=== PATIENT | female | born 1975 | race Caucasian/White ===

== ENCOUNTER 2019-04-07 14:19 | Emergency (ER) | payer OTHER ==
[~2019-04-07] VITALS: Ht 152 cm; Wt 126.0 kg
[2019-04-07] MEDS ORDERED: LACTATED RINGERS 1,000 ML IV STA (14:41)
[2019-04-07] MEDS ORDERED: KETOROLAC 30 MG/ML VIAL IVP STA (14:41)
[2019-04-07] MEDS ORDERED: ONDANSETRON 4 MG/2 ML (SDV) Z0FRAN IVP ONE (14:45)
[2019-04-07 14:50] LABS: BASOPHILS % (AUTO) 0 % (0-10); EOSINOPHILS # (AUTO) 0.1 10^3/uL (0.0-0.3); EOSINOPHILS % (AUTO) 1 % (0-10); HEMATOCRIT 42 % (35-52); LYMPHOCYTES # (AUTO) 0.7 X 10^3 (1.0-4.0); LYMPHOCYTES % (AUTO) 5 % (12-44); MEAN CORPUSCULAR HEMOGLOBIN 28 PG (25-34); MEAN CORPUSCULAR HGB CONC 33 G/DL (32-36); MEAN CORPUSCULAR VOLUME 86 FL (80-99); MEAN PLATELET VOLUME 10.9 FL (7.4-10.4); MONOCYTES # (AUTO) 0.4 X 10^3 (0.0-1.0); MONOCYTES % (AUTO) 3 % (0-12); NEUTROPHILS # (AUTO) 12.2 X 10^3 (1.8-7.8); NEUTROPHILS % (AUTO) 91 % (42-75); PLATELET COUNT 229 10^3/uL (130-400); RED CELL DISTRIBUTION WIDTH 14.2 % (10.0-14.5); WHITE BLOOD COUNT 13.3 10^3/uL (4.3-11.0)
[2019-04-07 15:04] LABS: ALBUMIN 4.3 GM/DL (3.2-4.5); BILIRUBIN,TOTAL 0.6 MG/DL (0.1-1.0); CALCIUM 9.4 MG/DL (8.5-10.1); CREATININE SERUM 1.01 MG/DL (0.60-1.30); POTASSIUM 4.2 MMOL/L (3.6-5.0); TOTAL PROTEIN 7.8 GM/DL (6.4-8.2)
[2019-04-07 15:05] LABS: INR 0.9 (0.8-1.4); PROTHROMBIN TIME PATIENT 12.8 SEC (12.2-14.7)
--- NOTE | 2019-04-07 15:15 | ED General ---
General Chief Complaint: Abdominal/GI Problems Stated Complaint: CANT HOLD ANYTHING DOWN Nursing Triage Note: pt presents to ED with c/o sudden onset abdominal cramping and n/v/d since 0730 this morning accompanied with intermittent chills. pt reports she was unable to keep morning medications down. Nursing Sepsis Screen: Possible Severe Sepsis Risk Source of Information: Patient Exam Limitations: No Limitations History of Present Illness Date Seen by Provider: Apr 07, 2019 Time Seen by Provider: 14:35 Initial Comments Here with report of abdominal cramping, nausea, vomiting and diarrhea since 7:30 this morning. She's had multiple episodes of each. Also reports some chills and body aches. She has been unable to keep anything down today. Nausea is a little better currently. She actually went to work when she had felt better earlier than started at all over again. Ultimately she came here. She works as a police specialist. Timing/Duration: 12 Hours, Changing Over Time Severity: Moderate Associated Systoms: No Chest Pain, No Cough; Fever/Chills, Nausea/Vomiting, Weakness Allergies and Home Medications Allergies Coded Allergies: No Known Drug Allergies (Unverified , 04/07/19) Patient Home Medication List Home Medication List Reviewed: Yes Review of Systems Review of Systems Constitutional: see HPI; No chills, No fever EENTM: no symptoms reported Respiratory: No cough; short of breath (mild with activity/vomiting) Gastrointestinal: abdominal pain (left-sided), diarrhea, nausea, vomiting Genitourinary: no symptoms reported Musculoskeletal: see HPI Skin: No lesions, No lumps Psychiatric/Neurological: No Symptoms Reported All Other Systems Reviewed Negative Unless Noted: Yes Past Lrfhjen-Fhmazb-Cixvcy Hx Past Med/Social Hx: Reviewed Nursing Past Med/Soc Hx Patient Social History Alcohol Use: Denies Use Recreational Drug Use: No 2nd Hand Smoke Exposure: No Recent Foreign Travel: No Contact w/Someone Who Travel: No Recent Infectious Disease Expo: No Recent Hopitalizations: No Seasonal Allergies Seasonal Allergies: No Past Medical History Surgeries: Yes Section, Orthopedic Respiratory: No Cardiac: No Neurological: No Female Reproductive Disorders: Polycystic Ovarian Dis Genitourinary: No Gastrointestinal: No Musculoskeletal: No Endocrine: Yes Diabetes, Non-Insulin dep HEENT: No Cancer: No Psychosocial: No Integumentary: No Family Medical History Reviewed Nursing Family Hx No Pertinent Family Hx Physical Exam-Suspected Sepsis Physical Exam Vital Signs Vital Signs - First Documented 04/07/19 14:35 Temp 37.1 Pulse 133 Resp 20 B/P (MAP) 137/94 (108) Pulse Ox 96 O2 Delivery Room Air Capillary Refill : Less Than 3 Seconds Blood Pressure Mean: 108 POS Height, Weight, BMI Height: '" Weight: lbs. oz. kg; 54.00 BMI Method: General Appearance: No Apparent Distress, WD/WN HEENT: PERRL/EOMI, Pharynx Normal Neck: Non Tender, Supple Respiratory: Lungs Clear, Normal Breath Sounds Cardiovascular: Regular Rate, Rhythm, No Murmur Gastrointestinal: Non Tender, Soft Back: Normal Inspection, No CVA Tenderness, No Vertebral Tenderness Extremity: Normal Range of Motion, Non Tender, No Calf Tenderness Neurologic/Psychiatric: Alert, Oriented x3 Skin: normal color, warm/dry; No ulcerations Focused Exam Lactate Level 04/07/19 14:45: Lactic Acid Level 2.75*H Lactic Acid Level Laboratory Tests Test 04/07/19 14:45 Lactic Acid Level 2.75 MMOL/L (0.50-2.00) *H Progress/Results/Core Measures Suspected Sepsis Recent Fever Within 48 Hours: Yes Infection Criteria Present: Suspected New Infection New/Unexplained Altered Menta: No Sepsis Screen: Possible Severe Sepsis Risk SIRS Temperature: Pulse: 133 Respiratory Rate: 20 Laboratory Tests 04/07/19 14:30: White Blood Count 13.3H Blood Pressure 137 /94 Mean: 108 04/07/19 14:45: Lactic Acid Level 2.75*H Laboratory Tests 04/07/19 14:30: Creatinine 1.01, INR Comment 0.9, Platelet Count 229, Total Bilirubin 0.6 Results/Orders Lab Results Laboratory Tests Test 04/07/19 14:30 04/07/19 14:45 04/07/19 15:34 Range/Units White Blood Count 13.3 H 4.3-11.0 10^3/uL Red Blood Count 4.93 4.35-5.85 10^6/uL Hemoglobin 14.0 11.5-16.0 G/DL Hematocrit 42 35-52 % Mean Corpuscular Volume 86 80-99 FL Mean Corpuscular Hemoglobin 28 25-34 PG Mean Corpuscular Hemoglobin Concent 33 32-36 G/DL Red Cell Distribution Width 14.2 10.0-14.5 % Platelet Count 229 130-400 10^3/uL Mean Platelet Volume 10.9 H 7.4-10.4 FL Neutrophils (%) (Auto) 91 H 42-75 % Lymphocytes (%) (Auto) 5 L 12-44 % Monocytes (%) (Auto) 3 0-12 % Eosinophils (%) (Auto) 1 0-10 % Basophils (%) (Auto) 0 0-10 % Neutrophils # (Auto) 12.2 H 1.8-7.8 X 10^3 Lymphocytes # (Auto) 0.7 L 1.0-4.0 X 10^3 Monocytes # (Auto) 0.4 0.0-1.0 X 10^3 Eosinophils # (Auto) 0.1 0.0-0.3 10^3/uL Basophils # (Auto) 0.0 0.0-0.1 10^3/uL Neutrophils % (Manual) 84 % Lymphocytes % (Manual) 6 % Monocytes % (Manual) 3 % Eosinophils % (Manual) 3 % Myelocytes % 1 % Band Neutrophils 3 % Blood Morphology Comment NORMAL Prothrombin Time 12.8 12.2-14.7 SEC INR Comment 0.9 0.8-1.4 Activated Partial Thromboplast Time 27 24-35 SEC Sodium Level 141 135-145 MMOL/L Potassium Level 4.2 3.6-5.0 MMOL/L Chloride Level 104 98-107 MMOL/L Carbon Dioxide Level 21 21-32 MMOL/L Anion Gap 16 H 5-14 MMOL/L Blood Urea Nitrogen 18 7-18 MG/DL Creatinine 1.01 0.60-1.30 MG/DL Estimat Glomerular Filtration Rate 60 BUN/Creatinine Ratio 18 Glucose Level 159 H 70-105 MG/DL Calcium Level 9.4 8.5-10.1 MG/DL Corrected Calcium 9.2 8.5-10.1 MG/DL Total Bilirubin 0.6 0.1-1.0 MG/DL Aspartate Amino Transf (AST/SGOT) 16 5-34 U/L Alanine Aminotransferase (ALT/SGPT) 27 0-55 U/L Alkaline Phosphatase 91 40-136 U/L Total Protein 7.8 6.4-8.2 GM/DL Albumin 4.3 3.2-4.5 GM/DL Lactic Acid Level 2.75 *H 0.50-2.00 MMOL/L Urine Color YELLOW Urine Clarity CLEAR Urine pH 5.5 5-9 Urine Specific Monona 1.025 H 1.016-1.022 Urine Protein NEGATIVE NEGATIVE Urine Glucose (UA) NEGATIVE NEGATIVE Urine Ketones NEGATIVE NEGATIVE Urine Nitrite NEGATIVE NEGATIVE Urine Bilirubin NEGATIVE NEGATIVE Urine Urobilinogen 0.2 < = 1.0 MG/DL Urine Leukocyte Esterase NEGATIVE NEGATIVE Urine RBC (Auto) NEGATIVE NEGATIVE Urine RBC 0-2 /HPF Urine WBC 0-2 /HPF Urine Squamous Epithelial Cells 25-50 H /HPF Urine Crystals NONE /LPF Urine Bacteria FEW H /HPF Urine Casts NONE /LPF Urine Mucus NEGATIVE /LPF Urine Culture Indicated NO Micro Results Microbiology 04/07/19 Influenza Types A,B Antigen (RANULFO) - Final, Complete My Orders Orders - DALTON HARP MD Ondansetron Injection (Zofran Injectio (04/07/19 14:45) Lactated Ringers (Lr 1000 Ml Iv Solution (04/07/19 14:41) Cbc With Automated Diff (04/07/19 14:41) Comprehensive Metabolic Panel (04/07/19 14:41) Blood Culture (04/07/19 14:41) Sputum Culture (04/07/19 14:41) Urinalysis (04/07/19 14:41) Urine Culture (04/07/19 14:41) Protime With Inr (04/07/19 14:41) Partial Thromboplastin Time (04/07/19 14:41) Ed Iv/Invasive Line Start (04/07/19 14:41) Ed Iv/Invasive Line Start (04/07/19 14:41) Vital Signs Adult Sepsis Patie Q15M (04/07/19 14:41) O2 (04/07/19 14:41) Remove Rings In Anticipation O (04/07/19 14:41) Lactic Acid Analyzer (04/07/19 14:41) Influenza A And B Antigens (04/07/19 14:41) Ketorolac Injection (Toradol Injection) (04/07/19 14:41) Manual Differential (04/07/19 14:30) Chest Pa/Lat (2 View) (04/07/19 14:55) Lactated Ringers (Lr 1000 Ml Iv Solution (04/07/19 15:33) Medications Given in ED Current Medications Medications Dose Ordered Sig/Jarad Route Start Time Stop Time Status Last Admin Dose Admin Ondansetron HCl 4 mg ONCE ONCE IVP 04/07/19 14:45 04/07/19 14:46 DC 04/07/19 15:00 4 MG Vital Signs/I&O 04/07/19 04/07/19 14:35 15:32 Temp 37.1 Pulse 133 116 Resp 20 19 B/P (MAP) 137/94 (108) 104/82 Pulse Ox 96 92 O2 Delivery Room Air Room Air Capillary Refill : Less Than 3 Seconds Blood Pressure Mean: 108 POS Progress Note : Progress Note Seen and evaluated. IV, labs, chest x-ray, UA and LR 1 L bolus. Toradol 30 mg IV for body aches and Zofran 4 mg IV for nausea. Monitor patient. 1539: Repeat LR 1 L bolus. Heart rate improved to 115 or so after first liter. Monitor patient 1650: Heart rate down to the low 100s and she is feeling better. She would like to try this at home. Lactic acid was noted to be a little elevated but I do believe this is related to volume depletion and dehydration from the diarrhea. She has no pain. UA is negative and chest x-ray is negative. We will go ahead and discharge her home with the understanding that she will return if she starts to get any pain or worsening of symptoms. She lives in [place] and I discussed with her about follow-up options in [place] at the ER there if there are problems. Discharged home with return precautions. Patient verbalize understanding instructions and agreement with plan. Diagnostic Imaging Diagonstic Imaging: Xray Plain Films/CT/US/NM/MRI: chest Comments [facility]. POS [place], [place] POS NAME: MACKENZIE GUERRIER [facility] REC#: [id number] PT STATUS: REG ER : 1975 PHYSICIAN: DALTON HARP MD ADMIT DATE: 04/07/19/ER Signed POSDate of Exam:04/07/19 CHEST PA/LAT (2 VIEW) EXAMINATION: Chest 2 view HISTORY: Vomiting COMPARISON: None available. FINDINGS: The lungs are clear without edema or pneumonia. No pleural effusion or pneumothorax. Heart size is normal. IMPRESSION: 1. Clear lungs. Dictated by: Dictated on workstation # [id number] Dict: 04/07/19 1511 Trans: 04/07/191511 [facility] [id number] Interpreted by: MADAY MARTINEZ MD Electronically signed by: MADAY MARTINEZ MD 04/07/19 151 Departure Impression Primary Impression: Nausea vomiting and diarrhea Additional Impression: Dehydration Disposition: 01 HOME, SELF-CARE Condition: Improved Departure-Patient Inst. Decision time for Depature: 16:55 Referrals: LEAH COOK APRN (PCP/Family) Primary Care Physician Patient Instructions: Acute Abdomen (Belly Pain), Adult (DC), Dehydration, Adult (DC), Diarrhea in Adolescents and Adults, Nausea and Vomiting, Adult (DC) Add. Discharge Instructions: All discharge instructions reviewed with patient and/or family. Voiced understanding. Clear liquid or light diet for the next 24 hours and then advance as tolerated. Plenty of fluids by taking small sips frequently. You may use fluids such as Gatorade, Sprite or nanci izzy or similar. Follow-up with your Dr. in a few days for recheck. It is important that you return for persistent vomiting, weakness, breathing problems, abdominal pain or other concerns as needed. Scripts Ondansetron (Ondansetron Odt) 4 Mg Tab.rapdis 4 MG PO Q6H PRN for NAUSEA/VOMITING, #12 TAB 0 Refills Prov: DALTON HARP MD 04/07/19 DALTON HARP MD Apr 07, 2019 15:15 POS
[2019-04-07 15:31] LABS: BAND NEUTROPHILS 3 %; EOSINOPHILS % (MANUAL) 3 %; LYMPHOCYTES % (MANUAL) 6 %; MONOCYTES % (MANUAL) 3 %; MYELOCYTES % 1 %; NEUTROPHILS % (MANUAL) 84 %
[2019-04-07 15:32] LABS: RBC MORPH NORMAL
[2019-04-07] MEDS ORDERED: LACTATED RINGERS 1,000 ML IV ONE (15:33)
[2019-04-07 15:45] LABS: BILIRUBIN,URINE NEGATIVE (NEGATIVE); CLARITY,URINE CLEAR; COLOR,URINE YELLOW; GLUCOSE, URINE (UA) NEGATIVE (NEGATIVE); KETONES,URINE NEGATIVE (NEGATIVE); LEUKOCYTE ESTERASE ,URINE NEGATIVE (NEGATIVE); NITRITE,URINE NEGATIVE (NEGATIVE); PH,URINE 5.5 (5-9); PROTEIN,URINE NEGATIVE (NEGATIVE)
[2019-04-07 15:54] LABS: RBC,URINE 0-2 /HPF; WBC,URINE 0-2 /HPF
[2019-04-07 15:55] LABS: BACTERIA,URINE FEW /HPF; SQUAMOUS EPITHELIAL CELL,UR 25-50 /HPF
[2019-04-07 16:47] VITALS: BP 129/87
[2019-04-07] MEDS ORDERED: ONDA4TAB11 PO (16:57)
[2019-04-07] MEDS ORDERED: RX-ONDANSETRON 4 MG ODT (ZOFRAN) PPK #4 PO ONE (17:00)
[2019-04-07 17:10] VITALS: BP 128/79
== END 2019-04-07 17:13 | disposition home or self-care (01) ==
LOC: EDSEX 14:21 → ER 14:21
DX: R11.2 Nausea with vomiting, unspecified (principal); R19.7 Diarrhea, unspecified; E86.0 Dehydration; E11.9 Type 2 diabetes mellitus without complications
CPT/HCPCS: 36415; 71046; 80053; 81000; 83605; 85007; 85027; 85610; 85730; 87040; 87077; 87088; 87186; 87804; 96361; 96374; 96375

== ENCOUNTER 2022-02-20 05:35 | Outpatient (CLI) | payer OTHER ==
[~2022-02-20] VITALS: Ht 154.9 cm; Wt 116.4 kg
[~2022-02-20 05:35] MED LIST: ONDA4TAB11 PO
[2022-02-20] MEDS ORDERED: FEXO-14 PO (14:20)
[2022-02-20] MEDS ORDERED: DAPA5TAB PO (14:20)
[2022-02-20] MEDS ORDERED: NORG1TAB15 PO (14:20)
[2022-02-20] MEDS ORDERED: ATOR10TA66 PO (14:20)
[2022-02-20] MEDS ORDERED: FERR325T24 PO (14:20)
[2022-02-20] MEDS ORDERED: METF-397 PO (14:20)
== END 2022-02-20 14:44 | disposition home or self-care (01) ==
LOC: PREOP 05:35
PROVIDERS: ATTEND Obstetrics & Gynecology
DX: Z01.818 Encounter for other preprocedural examination (principal)

== ENCOUNTER 2022-02-28 05:56 | Day surgery (SDC) | payer OTHER ==
[2022-02-28] VITALS (13 sets, daily range): BP systolic 103–147; BP diastolic 57–93
[~2022-02-28] VITALS: Ht 155 cm; Wt 116.4 kg
[~2022-02-28 05:56] MED LIST changes: +ATOR10TA66 PO; +DAPA5TAB PO; +FERR325T24 PO; +FEXO-14 PO; +METF-397 PO; +NORG1TAB15 PO
[2022-02-28] MEDS ORDERED: ceFAZolin INJECTION 1,000 MG in NS (IVPB) 50 ML IV ONE (06:15)
[2022-02-28 06:32] LABS: BASOPHILS % (AUTO) 0 % (0-10); EOSINOPHILS # (AUTO) 0.3 10^3/uL (0.0-0.3); EOSINOPHILS % (AUTO) 3 % (0-10); HEMATOCRIT 37 % (35-52); HEMOGLOBIN 12.2 g/dL (11.5-16.0); LYMPHOCYTES # (AUTO) 2.2 10^3/uL (1.0-4.0); LYMPHOCYTES % (AUTO) 25 % (12-44); MEAN CORPUSCULAR HEMOGLOBIN 30 pg (25-34); MEAN CORPUSCULAR HGB CONC 33 g/dL (32-36); MEAN CORPUSCULAR VOLUME 90 fL (80-99); MEAN PLATELET VOLUME 10.1 fL (9.0-12.2); MONOCYTES # (AUTO) 0.5 10^3/uL (0.0-1.0); MONOCYTES % (AUTO) 6 % (0-12); NEUTROPHILS # (AUTO) 5.9 10^3/uL (1.8-7.8); NEUTROPHILS % (AUTO) 66 % (42-75); PLATELET COUNT 206 10^3/uL (130-400)
[2022-02-28] MEDS: LACTATED RINGERS 1,000 ML IV PRN ×2 (06:38→14:00)
[2022-02-28] MEDS ORDERED: NEOSTIGMINE 3 MG/3 ML VIAL ONE (07:17)
[2022-02-28] MEDS ORDERED: ROCURONIUM 10 MG/ML 5 ML SYRINGE IV ONE ×2 (07:17→08:46)
[2022-02-28] MEDS ORDERED: GLYCOPYRROLATE 0.2 MG/ML (ROBINUL) 2 ML VIAL ONE (07:17)
[2022-02-28] MEDS ORDERED: ONDANSETRON 4 MG/2 ML (SDV) Z0FRAN ONE ×2 (07:17→09:55)
[2022-02-28] MEDS ORDERED: MIDAZOLAM 2 MG/2 ML (VERSED) VIAL ONE (07:17)
[2022-02-28] MEDS ORDERED: LIDOCAINE PF 2% 5 ML (XYLOCAINE) VIAL ONE (07:17)
[2022-02-28] MEDS ORDERED: proPOfol 200 MG/20 ML (DIPRIVAN) VIAL IV ONE (07:17)
[2022-02-28] MEDS ORDERED: fentaNYL INJ 100 MCG/2 ML AMP ONE (07:17)
[2022-02-28] MEDS ORDERED: BUP/EPI 0.5% 1:200,000 (MARCAINE) 10ML VIAL IJ ONE (07:25)
--- NOTE | 2022-02-28 07:26 | Progress Note-Pre Operative ---
Pre-Operative Progress Note Date of Available H&P: Feb 28, 2022 Date H&P Reviewed: Feb 28, 2022 Time H&P Reviewed: 07:26 History & Physical: H&P Reviewed, No changes noted Pre-Operative Diagnosis: Menometrorrhagia/uterine megaly JANETH DICKEY MD Feb 28, 2022 07:26
--- NOTE | 2022-02-28 07:27 | Progress Note-Post Operative ---
Post-Operative Progess Note Surgeon (s)/Band Straightener (s) Surgeon JANETH DICKEY MD Band Straightener: Crissy Pre-Operative Diagnosis Menometrorrhagia/uterine megaly Post-Operative Diagnosis Same withExtensive abdominal adhesions and with pathology pending Procedure & Operative Findings Date of Procedure 02/28/22 Procedure Performed/Findings Hysterectomy with bilateral salpingectomiesAnd extensive adhesiolysis, And cystoscopy Anesthesia Type General anesthesia Estimated Blood Loss Estimated blood loss (mL): Minimal Specimens/Packing Specimens Removed Uterus and fallopian tubes JANETH DICKEY MD Feb 28, 2022 07:27
[2022-02-28] MEDS ORDERED: D5 LR IV SOLUTION 1,000 ML IV SCH (07:30)
[2022-02-28] MEDS ORDERED: HYDROmorphone 2 MG/ML VIAL (DILAUDID) IV ONE (07:30)
[2022-02-28] MEDS ORDERED: oxyCODONE/APAP 5/325MG (PERCOCET 5) TABLET PO PRN (07:30)
[2022-02-28] MEDS ORDERED: morphine INJ 10 MG/ML 1ML (SYR OR VIAL) IVP ONE (07:30)
[2022-02-28] MEDS ORDERED: ESTROGENS CONJ INJECTION 25 MG in WATER (STERILE) FOR INJECTION 5 ML IV ONE (07:30)
[2022-02-28] MEDS ORDERED: ONDANSETRON 4 MG/2 ML (SDV) Z0FRAN IVP PRN (07:30)
[2022-02-28] MEDS ORDERED: PROMETHAZINE INJ 25 MG/ML (PHENERGAN) AMP IM PRN (07:30)
[2022-02-28] MEDS ORDERED: MEPERIDINE (DEMEROL) INJ 50 MG/ML IVP PRN (07:30)
[2022-02-28] MEDS ORDERED: OXYC1TAB87 PO (07:33)
[2022-02-28] MEDS ORDERED: IBUP-1780 PO (07:33)
[2022-02-28] MEDS ORDERED: DOCU100C37 PO (07:33)
--- NOTE | 2022-02-28 07:35 | Discharge Inst-Surgical ---
Discharge Inst-Surgical Depart Medication/Instructions New, Converted or Re-Newed RX: Transmitted to Pharmacy Consults/Follow Up Patient Instructions: As directed Orders & Referrals Follow Up Appt: Return to clinic in 1 week for suture removal Call to make follow up appt. for patient in 4 weeks. Activity: Rest for 24 hours, than as tolerated. Wound Care: May remove Band-Aid tomorrow. Replace as desired. Keep incisions clean and dry. Wash daily with soap and water. Prescriptions have been transmitted electronically to patient's pharmacy for Percocet Motrin and Colace she is to continue her other home medications Diet: As tolerated shower or tub bathe as desired. No driving for 24 hours, no alcoholic beverages for 24 hours, and nothing per vagina (no tampons, douching, or intercourse) for 8 weeks. Patient to return to the clinic as soon as possible for: Temperature greater than 101F, Severe Pain, Foul discharge from incision or vagina, Excessive Bleeding (more than a period). Activity Activity as Tolerated: No Diet Discharge Diet: No Restrictions JANETH DICKEY MD Feb 28, 2022 07:35
[2022-02-28] MEDS ORDERED: HYDROmorphone 2 MG/ML VIAL (DILAUDID) ONE (08:08)
[2022-02-28] MEDS ORDERED: BUP/EPI 0.5% 1:200,000 (SENSORCAINE) 30 ML VIAL IJ ONE (08:24)
[2022-02-28] MEDS ORDERED: FUROSEMIDE 40 MG/4 ML INJ (LASIX) ONE (09:14)
[2022-02-28] MEDS ORDERED: METHYLENE BLUE 0.5% (PROVAYBLUE) 50 mg/10 ml vial IV ONE (09:15)
[2022-02-28] MEDS ORDERED: SEVOFLURANE (ULTANE) 15 ML INHAL SOLN ONE (09:31)
[2022-02-28] MEDS ORDERED: ESTROGENS CONJ INJECTION 5 ML ONE (09:44)
[2022-02-28] MEDS ORDERED: WATER (STERILE) FOR INJECTION 10 ML ONE (09:44)
[2022-02-28] MEDS ORDERED: KETOROLAC 30 MG/ML VIAL ONE (09:45)
[2022-02-28] MEDS: ONDANSETRON 4 MG/2 ML (SDV) Z0FRAN IVP PRN ×2 (09:56→11:11)
[2022-02-28] MEDS: KETOROLAC 30 MG/ML VIAL IV SCH ×4 (09:59→23:07)
[2022-02-28] MEDS ORDERED: PROMETHAZINE INJ 25 MG/ML (PHENERGAN) AMP IVP ONE (10:00)
[2022-02-28] MEDS ORDERED: morphine INJ 10 MG/ML 1ML (SYR OR VIAL) ONE (10:15)
--- NOTE | 2022-02-28 13:38 | Anesthesia-General Post-Op ---
General Patient Condition Mental Status/LOC: Same as Preop Cardiovascular: Satisfactory Nausea/Vomiting: Present Respiratory: Satisfactory Pain: Controlled Complications: Absent Post Op Complications Complications None Follow Up Care/Instructions Patient Instructions None needed. Anesthesia/Patient Condition Patient Condition Patient was seen this morning towards the end of her PACU stay and she was doing well. She complain of nausea earlier, but it was improved at that time. She also did have some abdominal pain, which is to be expected. She had stable vital signs, no apparent adverse anesthesia problems. No complications reported per nursing. BIRGIT ORTIZ DO Feb 28, 2022 13:38
--- NOTE | 2022-02-28 15:04 | OPERATIVE REPORT ---
DATE OF SERVICE: 02/28/2022 PREOPERATIVE DIAGNOSES: Menorrhagia and menometrorrhagia as well as uteromegaly. POSTOPERATIVE DIAGNOSES: Menorrhagia and menometrorrhagia as well as uteromegaly with extensive abdominal adhesions. OPERATIVE PROCEDURE: Total laparoscopic hysterectomy with bilateral salpingectomies as well as extensive adhesiolysis and cystoscopy. OPERATIVE DESCRIPTION: With the patient in the supine position under satisfactory general anesthesia, she was repositioned in a dorsal lithotomy position in the [facility] and then prepped and draped in the usual fashion for abdominal and vaginal surgery. A weighted speculum was placed in the posterior fornix of vagina, cervix exposed and grasped anteriorly with single tooth tenaculum. Uterus was sounded to 9 cm with uterine sound. The cervix was then serially dilated with Tobi dilators to accommodate a Bre II manipulator, which was placed using a 6 mm x 8 cm uterine probe and a 25 mm colpotomy ring. Sutures of #1 Vicryl were placed at 3 and 9 o'clock positions of the cervix to affix the uterus to the manipulator. Woodruff catheter was placed in the urinary bladder. Tenaculum and speculum were removed. The patient was brought in the low dorsal lithotomy position. A 12 mm incision was made about 4 cm below the xiphoid process. Attempt was made to place a Veress needle, but that was not successful. There have been a concern for adhesions. A 5 mm port was placed at Sauer's point after making an incision, placing the Veress needle and insufflated with 2.4 liters of carbon dioxide. The port was placed under direct vision. The abdominal wall was transilluminated. There were extensive adhesions of the omentum to the anterior abdominal wall. There was a clear area in the left lateral side and 8 mm port was placed there and then using hook electrocautery, the extensive adhesions were taken down with very careful and meticulous dissection until all of the omentum was freed and the bowel and omentum could spill up into the upper abdomen with the patient in Trendelenburg. Ports of 8 mm and 12 mm were placed in the right lateral quadrant about 5 cm inferior to the midline port. A 12 mm port was placed in the midline incision. The patient was placed in a full Trendelenburg. The operative was advanced on the patient's . The operative instruments were placed in the right and left lateral ports and I retired to the da Kami console. At the console using the vessel sealer on the right and a bipolar fenestrated grasper on the left, the pelvis was first examined. The ovaries were normal, slightly atretic looking. The fallopian tubes were normal. The uterus was multilobular and bulky consistent with uterine fibroids. The laparoscope was rotated. An attempt was made to identify the appendix; however, that was unsuccessful due to the patient's body habitus and extensive omental tissue. The appendix was not seen. Laparoscope was brought back to the pelvis. The intended procedure had been total laparoscopic hysterectomy with bilateral salpingectomies was then initiated. I proceeded by grasping the right fallopian tube using the vessel sealer to clamp, cauterize and divide the mesosalpinx stepwise across to the uteroovarian pedicle and then dividing the uteroovarian pedicle, the round ligament, the broad ligament and down onto the cardinal ligament with the vessel sealer as well. Same procedure was performed on the left, allowing for eventual removal of both fallopian tube with the uterus. The anterior lower uterine segment peritoneum was exposed and then using a monopolar shear in place of the vessel sealer, the anterior parietoperitoneum was opened and the bladder dissected down off the lower uterine segment and then colpotomy incision was started at 12 o'clock position onto the colpotomy ring. That incision was continued circumferentially until the entire colpotomy ring was exposed and then with some difficulty, the uterus was extracted through the vagina with the fallopian tubes still attached. The vaginal cuff was closed with a single suture of V-Loc barbed suture starting from the right angle and continuing across to the left angle taking care to ensure inclusion of the uterine vessel pedicles bilaterally. With hemostasis complete and no abnormal pathology, the ureter was very visible. The laparoscopic portion of the procedure was complete and terminated. The operative instruments were removed under direct vision as were the ports. The abdomen was evacuated of the insufflating gas in the process of removing the ports. The patient was given 5 mL of indigo carmine and 20 mg of Lasix in preparation for a cystoscopy. The skin incisions were closed with nylon suture. The fascia at the supraumbilical incision was closed with [id number] suture of 2-0 Vicryl. With the patient now in low dorsal lithotomy position and out of Trendelenburg, cystoscopy was performed with noting of free spill out of blue tinted urine from both ureteral orifices. With integrity of the ureters and bladder confirmed, the procedure was complete and terminated. The operative instruments were all removed. The Woodruff catheter was replaced to dependent drainage. The patient was uneventfully awakened from her general anesthesia and transferred to recovery room in stable condition. Sponge and needle counts were correct. Blood loss was minimal. Job ID: [id number] DocumentID: [id number] Dictated Date: 02/28/2022 10:34:09 Surgical Specialist Date: 02/28/2022 15:04:02 Dictated By: JANETH DICKEY MD
[2022-02-28] MEDS ORDERED: CEPACOL SORE THROAT-COUGH LOZENGE PO PRN (23:15)
[2022-02-28] MEDS ORDERED: MEPERIDINE (DEMEROL) INJ 50 MG/ML IM PRN (23:30)
[2022-03-01 01:00] VITALS: BP 103/58
[2022-03-01 04:33] VITALS: BP 104/58
[2022-03-01] MEDS: KETOROLAC 30 MG/ML VIAL IV SCH (04:35)
[2022-03-01] MEDS ORDERED: IBUPROFEN 800 MG (MOTRIN) TAB PO SCH (07:30)
[2022-03-01] MEDS ORDERED: DOCUSATE SODIUM 100 MG (COLACE) CAP PO SCH (09:00)
[2022-03-01 09:26] VITALS: BP 111/64
--- NOTE | 2022-03-01 09:36 | Progress Note ---
Standard Progress Note Progress Notes/Assess & Plan Date Seen by a Provider: Mar 01, 2022 Time Seen by a Provider: 09:35 Progress/Assessment & Plan This patient is without complaint. She is ambulating, voiding, tolerating oral intake well and has good pain control. She feels ready for discharge home. Vital Signs Date Time Temp Pulse Resp B/P (MAP) Pulse Ox O2 Delivery O2 Flow Rate FiO2 03/01/22 04:33 36.9 73 16 104/58 (73) 93 Room Air 03/01/22 01:00 36.6 70 103/58 (73) 92 Room Air 02/28/22 20:40 36.2 77 103/57 (72) 93 Room Air 02/28/22 16:00 37.0 89 18 120/66 (84) 93 Room Air 02/28/22 13:01 92 Nasal Cannula 2.00 02/28/22 12:40 36.6 89 16 119/64 (82) 94 Nasal Cannula 2.00 02/28/22 12:04 Nasal Cannula 2.00 02/28/22 11:25 36.6 72 16 143/67 (92) 94 Nasal Cannula 2.00 02/28/22 11:00 94 Nasal Cannula 2.00 02/28/22 10:59 36.4 86 16 141/83 (102) 99 Nasal Cannula 2.00 02/28/22 10:46 Nasal Cannula 2.00 02/28/22 10:40 36.3 19 142/93 (109) 95 Nasal Cannula 2.00 02/28/22 10:30 OxyMask 2.00 02/28/22 10:30 17 139/82 (101) 96 OxyMask 2.00 02/28/22 10:20 14 141/88 (105) 94 OxyMask 2.00 02/28/22 10:15 OxyMask 2.00 02/28/22 10:10 17 147/92 (110) 97 OxyMask 2.00 02/28/22 10:00 OxyMask 3.00 02/28/22 10:00 16 144/86 (105) 99 OxyMask 3.00 02/28/22 09:56 16 146/86 (106) 100 OxyMask 4.00 02/28/22 09:46 36.6 16 134/87 (103) 100 OxyMask 6.00 02/28/22 09:46 OxyMask 6.00 I & O 03/01/22 07:00 Intake Total 1420 ml Output Total 1850 ml Balance -430 ml Vital signs are stable. Patient is afebrile. The abdomen is benign. The surgical incision dressings are clean and dry. Extremities show no clubbing or cyanosis. There is no Homans' sign. Pelvic exam was deferred Assessment and plan Postoperative day #1 status post total laparoscopic hysterectomy with bilateral salpingectomies as well as extensive adhesiolysis and a postoperative cystoscopy. Patient is doing well and will be discharged home with follow-up in clinic Final Diagnosis Menometrorrhagia and uterine megaly JANETH DICKEY MD Mar 01, 2022 09:36
== END 2022-03-01 10:20 | disposition home or self-care (01) ==
LOC: SDC 05:56 → WS 10:50 → SDC 03-01 10:20
PROVIDERS: ATTEND Obstetrics & Gynecology
DX: D25.1 Intramural leiomyoma of uterus (principal); N83.8 Other noninflammatory disorders of ovary, fallopian tube and broad ligament; N85.2 Hypertrophy of uterus; Z87.891 Personal history of nicotine dependence; N92.1 Excessive and frequent menstruation with irregular cycle; E66.01 Morbid (severe) obesity due to excess calories; Z68.42 Body mass index [BMI] 45.0-49.9, adult
CPT/HCPCS: 36415; 82947; 84703; 85025; 87081; 94664